=== PATIENT | female | born 1985 | race American Indian/Alaskan Native ===

== ENCOUNTER 2017-05-25 00:47 | Emergency (ER) | payer SELFPAY ==
[2017-05-25 01:07] VITALS: BP 117/75
[2017-05-25 01:39] LABS: Basophils % (Auto) 0.9 % (0.0-1.8); Eosinophils % (Auto) 2.1 % (0.0-4.3); Hematocrit 34.6 % (30.3-42.9); Hemoglobin 12.1 gm/dl (10.1-14.3); Mean Corpuscular HGB Conc 35 % (30-34); Mean Corpuscular Hemoglobin 33 pg (28-32); Mean Corpuscular Volume 93 fl (79-97); Platelet Count 294 K/mm3 (140-440); Red Blood Count 3.73 M/mm3 (3.65-5.03); Red Cell Distribution Width 13.1 % (13.2-15.2); White Blood Count 7.3 K/mm3 (4.5-11.0)
[2017-05-25 01:49] LABS: INR 0.96 (0.87-1.13)
[2017-05-25 01:50] LABS: Partial Thromboplastin Time 27.1 Sec. (24.2-36.6)
[2017-05-25 01:54] LABS: Anion Gap 17 mmol/L; Blood Urea Nitrogen 6 mg/dL (7-17); Calcium 8.7 mg/dL (8.4-10.2); Carbon Dioxide 22 mmol/L (22-30); Chloride 100.9 mmol/L (98-107); Glucose 86 mg/dL (65-100); Potassium 3.8 mmol/L (3.6-5.0); Sodium 136 mmol/L (137-145)
--- NOTE | 2017-05-25 09:16 | XRay Report ---
ROUTINE CHEST, TWO VIEWS: HISTORY: Right chest pain. The trachea, heart, mediastinal contour, lung coelho and bony thorax are unremarkable. IMPRESSION: Unremarkable chest x-ray.
== END 2017-05-25 06:32 | disposition left against medical advice (07) ==
LOC: ED 00:47
DX: R51 Headache (principal); Z53.21 Procedure and treatment not carried out due to patient leaving prior to being seen by health care provider
CPT/HCPCS: 36415; 71020; 80048; 84484; 84702; 85025; 85379; 85610; 85730; 93005; 93010